=== PATIENT | male | born 1995 | race African-American/Black ===

== ENCOUNTER 2020-08-28 04:35 | Emergency (ER) | payer OTHER ==
[~2020-08-28] VITALS: Ht 190.5 cm; Wt 96.2 kg
[2020-08-28 04:40] VITALS: BP 108/67
--- NOTE | 2020-08-28 04:40 | NUR ---
ED Nurse Note: Pt arrived after dropping off a pt to ED c/o fatigue, sore throat, body aches, chills since 11/4 AM at work. PT stated he is a high risk d/t work. Pt febrile on arrival 102 oral.
--- NOTE | 2020-08-28 04:56 | Emergency Room Report ---
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 He presents with chief plaint of fever and generalized malaise. Onset today. No cough or congestion. Generalized body pain. Had Covid testing last week and was negative. No nausea, vomiting or diarrhea. No abdominal pain. Nothing made it better. Nothing made it worse. Allergies: Coded Allergies: No Known Allergies (Unverified , 08/28/20) COVID-19 Screening Contact w/high risk pt: Yes Experienced COVID-19 symptoms?: Yes COVID-19 Testing performed CRYPTOLOGIST: No Patient History Past Medical History: see triage record, old chart reviewed Past Surgical History: none Pertinent Family History: none Social History: Denies: smoking Immunizations: other Reviewed Nursing Documentation: PMH: Agreed; PSxH: Agreed Nursing Documentation-PMH Past Medical History: No Stated History Review of Systems Constitutional: Reports: fever, malaise Eye: Denies: eye pain, blurred vision ENT: Denies: ear pain, nose congestion, throat swelling Respiratory: Denies: cough, shortness of breath Cardiovascular: Denies: chest pain, palpitations Gastrointestinal: Denies: abdominal pain, diarrhea, nausea, vomiting Musculoskeletal: Denies: back pain, joint pain Skin: Denies: rash Neurological: Denies: headache, numbness Endocrine: Denies: increased thirst, increased urine Hematologic/Lymphatic: Denies: easy bruising All Other Systems: negative except mentioned in HPI Physical Exam Vital Signs Date Time Temp Pulse Resp B/P (MAP) Pulse Ox O2 Delivery O2 Flow Rate FiO2 08/28/20 04:38 102.4 115 20 108/67 (81) 96 Room Air Vitals with fever and tachycardia Sp02 EP Interpretation: reviewed, normal General Appearance: well appearing, no apparent distress, alert Head: normocephalic, atraumatic Eyes: bilateral eye PERRL, bilateral eye EOMI ENT: hearing grossly normal, normal pharynx Neck: full range of motion, supple, no meningismus Respiratory: chest non-tender, lungs clear, normal breath sounds Cardiovascular #1: regular rate, rhythm, no murmur Gastrointestinal: normal bowel sounds, non tender, no mass, no organomegaly, no bruit, non-distended Musculoskeletal: back normal, normal range of motion, gait/station normal Psychiatric: mood/affect normal Medical Decision Making Diagnostic Impression: Primary Impression: Influenza-like symptoms ER Course Patient with flulike illness. His Covid test and his influenza test is negative. However his symptoms just started. Because of the Covid pandemic, he still may have Covid but testing has been negative. If symptoms continue in a few days, you may warrant repeat testing. No evidence of any pneumonia or respiratory distress. Will discharge home. Last Vital Signs Date Time Temp Pulse Resp B/P (MAP) Pulse Ox O2 Delivery O2 Flow Rate FiO2 08/28/20 04:38 102.4 115 20 108/67 (81) 96 Room Air Status: improved Disposition: HOME, SELF-CARE Condition: Stable Scripts Acetaminophen* (ACETAMINOPHEN EXTRA STRENGTH*) 500 Mg Tablet 500 MG ORAL Q8H PRN for Fever/Headache/Mild Pain, #30 TAB Prov: Darius Corona MD 08/28/20 Additional Instructions: Increase fluids. Tylenol for fever. Good handwashing. Wear your mask. Practice social isolation. You may need repeat Covid testing in a few days if continue with fever. Darius Corona MD Aug 28, 2020 04:55
[2020-08-28] MEDS ORDERED: Acetaminophen 500mg (ES) tab ORAL ONE (05:00)
--- NOTE | 2020-08-28 05:02 | NUR ---
ED Nurse Note: flu and COVID swab sent to lab
[2020-08-28] MEDS ORDERED: ACETAMINOPHEN500 M3 ORAL (05:43)
[2020-08-28 05:55] VITALS: BP 126/69
--- NOTE | 2020-08-28 05:55 | NUR ---
ER DISCHARGE NOTE: Patient is cleared to be discharged per ERMD, pt is aox4, on room air, with stable vital signs. pt was given dc and prescription instructions, pt was able to verbalize understanding, pt id band removed. pt is able to ambulate with steady gait. pt took all belongings.
== END 2020-08-28 05:55 | disposition home or self-care (01) ==
LOC: EMR 05:00
DX: J11.1 Influenza due to unidentified influenza virus with other respiratory manifestations (principal)
CPT/HCPCS: 86710; 99282; U0002